=== PATIENT | female | born 1955 | race Caucasian/White ===

== ENCOUNTER → 2017-07-18 | Outpatient (CLI) | payer BC ==
[~2017-07-18] VITALS: Ht 162.6 cm; Wt 70.3 kg
[~2017-07-18] MED LIST: ADULT ASPIRIN81 MG PO; BACLOFEN10 MG PO; IBUPROFEN800 MG PO; MULTIVITAMIN1 EAC2 PO; NEURONTIN300 MG PO; NORVASC10 MG PO; PRAVACHOL10 MG PO; TYLENOL EXTRA500 MG PO; [UNRECOGNIZED DRUG - OTHER]
== END | disposition home or self-care (01) ==
LOC: AMB 10:30
PROC: 0DJD8ZZ Inspection of Lower Intestinal Tract, Via Natural or Artificial Opening Endoscopic (ICD-10-PCS; principal; 2017-07-18)
DX: Z12.11 Encounter for screening for malignant neoplasm of colon (principal); E78.5 Hyperlipidemia, unspecified; I10 Essential (primary) hypertension; F17.200 Nicotine dependence, unspecified, uncomplicated; Z88.8 Allergy status to other drugs, medicaments and biological substances; Z82.49 Family history of ischemic heart disease and other diseases of the circulatory system